=== PATIENT | female | born 1960 | race Hispanic/Latino ===

== ENCOUNTER → 2017-08-14 | Outpatient (CLI) | payer MEDICARE, MEDICAID ==
[2017-08-14 12:28] LABS: #Eosinphils 0.1 thou/uL (0.0-0.7); #Lymphocytes 2.3 thou/uL (1.20-3.40); #Monocytes 0.5 thou/uL (0.11-0.59); #Neutrophils 2.6 thou/uL (1.40-6.50); %Basophils 0.8 % (0.0-1.0); %Eosinophils 2.6 % (0.0-10.0); %Lymphocytes 41.2 % (21.0-51.0); %Monocytes 8.9 % (0.0-10.0); %Neutrophils 46.5 % (42.0-75.0); Hemoglobin 13.8 g/dL (12.0-16.0); Mean Corpuscular HGB CONC 33.7 g/dL (32.0-36.0); Mean Corpuscular Hemoglobin 32.1 pg (27.0-31.0); Mean Corpuscular Volume 95.3 fl (81.0-99.0); Mean Platelet Volume 9.3 fL (7.4-10.4); Platelet Count 158 thou/uL (130-400); RBC Distribution Width 11.8 % (11.5-14.5); Red Blood Cell (RBC) Count 4.28 mill/uL (4.20-5.40); White Blood Cell (WBC) Count 5.6 thou/uL (4.8-10.8)
[2017-08-14 12:46] LABS: Bilirubin Negative (Negative); Blood, Urine Negative (Negative); Clarity CLEAR (Clear); Glucose, Urine (Dipstick) 250 mg/dL (Negative); Leukocyte Negative (Negative); Nitrite Negative (Negative); Protein, Urine (Dipstick) Negative (Neg-Trace); Specific Gravity, Urine 1.017 (1.002-1.036)
[2017-08-14 12:49] LABS: Bacteria/HPF None Seen HPF (None Seen); Hyaline Casts/LPF 0-3 HYALINE CAST LPF (0-3 Hyaline); RBC/HPF 0-3 HPF (0-3); Squamous Epithelial 0-3 HPF (0-3); WBC/HPF None Seen HPF (0-3)
[2017-08-14 12:58] LABS: Anion Gap 13 mmol/L (10-20); BUN (Urea Nitrogen) 8 mg/dL (9.8-20.1); Calc. Creatinine Clearance 0 mL/min (70-130); Calcium 9.2 mg/dL (7.8-10.44); Carbon Dioxide 26 mmol/L (22-29); Chloride 106 mmol/L (98-107); Estimated GFR-MDRD 78; Glucose 202 mg/dL (70-105); Sodium 141 mmol/L (136-145)
== END ==
LOC: LABBT 09:00
PROVIDERS: ATTEND Orthopaedic Surgery Hand Surgery
DX: Z01.812 Encounter for preprocedural laboratory examination (principal); M65.332 Trigger finger, left middle finger
CPT/HCPCS: 80048; 81001; 85025

== ENCOUNTER 2017-08-16 06:09 | Day surgery (SDC) | payer MEDICARE, MEDICAID ==
[2017-08-14 11:40] VITALS: BMI 25.7
[2017-08-16] MEDS ORDERED: Bupivacaine PF 0.5% 30 ML VIAL ONE (06:45)
[2017-08-16] MEDS ORDERED: Betamet Acet/Betamet Na Ph 30 MG/5 ML VIAL ONE (06:45)
[2017-08-16] MEDS ORDERED: CEFAZOLIN/Water 2 GM/20 ML SYRINGE ONE (06:59)
[2017-08-16] MEDS ORDERED: Fentanyl 100 MCG/2 ML VIAL ONE (07:02)
[2017-08-16] MEDS ORDERED: Midazolam HCl 2 mg/2 ml Vial ONE (07:02)
[2017-08-16] MEDS ORDERED: Bacitracin Zinc Ointment 30 gm TUBE ONE (08:06)
[2017-08-16] MEDS ORDERED: Ketorolac Tromethamine 30 MG/ML VIAL ONE (09:01)
--- NOTE | 2017-08-16 10:09 | OP ---
DATE OF PROCEDURE: 08/16/2017 PREOPERATIVE DIAGNOSIS: Left middle finger or long finger trigger digit. FINDINGS: 1. Very tight A1 darrian. 2. Thick flexor profundus and flexor superficialis at this level with very large tenosynovium. PROCEDURE PERFORMED: 1. Flexor digitorum profundus and superficialis radical flexor synovectomy. 2. A1 darrian release, left long finger. Injection with 10 mL total 0.5% Marcaine and 4 Celestone injection 3 mL over the tendons. SPECIMEN: None. TOURNIQUET TIME: 9 minutes. SURGEON: Christiano Haines M.D. INDICATIONS: Failed conservative treatment with pain throughout most of the finger, but centered on the A1 darrian region. She has failed conservative treatment and was associated with treatment. DESCRIPTION: After receiving successful anesthesia by [facility] with general LMA technique automated by the block list above, it was prepped and draped, timeout was accomplished. We outlined a curvilinear incision along the flexor crease of the involved finger, carried through skin and subc utaneous tissue. We identified the neurovascular bundle, protected it and then found a very tight A1 darrian with synovial swelling almost 1.5 cm proximal to it and underneath it. We released A1 darrian in the midline under direct visualization with a Sheridan blade, then performed tenosynovectomy, remov ed all the additional swelling from there proximal. We lifted the tendon up and did not see any mass es on the volar plate. Released tourniquet. Hemostasis obtained. with 3 mL of good technique Celestone, betamethasone inside and the patient then had the incision closed with interrupted 4-0 ny danica. The patient left the operating room without evidence of anesthetic or operative complication in a bulky dressing.
== END 2017-08-16 11:18 | disposition home or self-care (01) ==
LOC: SDC 06:09
PROVIDERS: ATTEND Orthopaedic Surgery Hand Surgery
PROC: 0LN80ZZ Release Left Hand Tendon, Open Approach (ICD-10-PCS; principal; 2017-08-16)
DX: M65.332 Trigger finger, left middle finger (principal); E11.9 Type 2 diabetes mellitus without complications; M19.90 Unspecified osteoarthritis, unspecified site; M65.9 Synovitis and tenosynovitis, unspecified; F17.200 Nicotine dependence, unspecified, uncomplicated; Z79.84 Long term (current) use of oral hypoglycemic drugs; Z79.891 Long term (current) use of opiate analgesic; Z79.899 Other long term (current) drug therapy; Z90.710 Acquired absence of both cervix and uterus; Z90.49 Acquired absence of other specified parts of digestive tract; Z98.890 Other specified postprocedural states
CPT/HCPCS: 36416; 96372; J0702; J1885; J2250; J3010; S0020

== ENCOUNTER 2017-09-04 19:05 | Observation (INO) | payer MEDICARE, MEDICAID ==
[~2017-09-04 19:05] MED LIST: Ketorolac Tromethamine 30 MG/ML VIAL ONE; Ondansetron HCl/PF 4 MG/2 ML Vial ONE; PROPOFOL 200 MG/20 ML VIAL ONE; diphenhydrAMINE 50 MG/ML VIAL ONE; ePHEDrine/0.9% NaCl/PF SYRINGE 50 mg/10 ml ONE
[2017-09-04] MEDS ORDERED: Bacitracin Zinc Ointment 30 gm TUBE ONE (20:14)
[2017-09-04] MEDS ORDERED: Sodium Chloride 0.9% 10 ML ONE ×2 (20:14→21:40)
[2017-09-04] MEDS ORDERED: Fentanyl 100 MCG/2 ML VIAL ONE ×3 (21:00→22:35)
[2017-09-04] MEDS ORDERED: Bisacodyl 10 MG SUPP PR PRN (22:13)
[2017-09-04] MEDS ORDERED: Promethazine HCl 25 MG/ML VIAL IM PRN ×2 (22:13)
[2017-09-04] MEDS ORDERED: Ondansetron HCl/PF 4 MG/2 ML Vial IV PRN (22:13)
[2017-09-04] MEDS ORDERED: Promethazine HCl 25 MG/ML VIAL SLOW IVP PRN (22:13)
[2017-09-04] MEDS ORDERED: Ondansetron HCl/PF 4 MG/2 ML Vial IVP PRN (22:13)
[2017-09-04] MEDS ORDERED: Milk Of Magnesia 30 ML UDCUP PO PRN (22:13)
[2017-09-04] MEDS ORDERED: Communication Order-Pharmacy FS SCH (22:15)
[2017-09-04] MEDS ORDERED: TETANUS AND DIPHTHERIA TOX/PF 0.5 ML DISP.SYRIN IM SCH (23:00)
[2017-09-04] MEDS: HYDROcodone/Acetaminophen 5/325 mg Tablet PO PRN (23:25)
[2017-09-04] MEDS ORDERED: Ketorolac Tromethamine 30 MG/ML VIAL IVP SCH (23:59)
[2017-09-05] MEDS: traMADol HCl 50 MG TAB PO PRN ×3 (02:12→18:53)
[2017-09-05 02:19] VITALS: BMI 27.6
[2017-09-05] MEDS: Ketorolac Tromethamine 30 MG/ML VIAL IVP SCH ×4 (04:54→21:14)
[2017-09-05] MEDS ORDERED: Adacel (T-DAP) 0.5 ML VIAL IM ONE (06:00)
--- NOTE | 2017-09-05 06:33 | OP ---
DATE OF PROCEDURE: 09/04/2017 POSTOPERATIVE DIAGNOSES: 1. Left middle finger open wound with abscess, palmar A1 darrian, surgery site. 2. Tendon sheath infection, left middle finger. FINDINGS: 1. Tendon sheath purulence A3-4 level. 2. Mucopurulence, A1 darrian level with marked tenosynovitis, flexor digitorum profundus superficiali s. PROCEDURES PERFORMED: 1. Radical flexor tenosynovectomy, digitorum profundus. 2. Radical flexor tenosynovectomy, flexor digitorum superficialis, this is at the palm of the left m iddle finger. 3. Tendon sheath drainage, finger level, left-middle finger. SPECIMEN: Yes. Culture at both sites as listed above. TOURNIQUET TIME: 14 minutes. ESTIMATED BLOOD LOSS: 10 mL. INDICATION: The patient had a 3-week ago, A1 darrian radical release with flexor tenosynovectomy now complained of erythema, pain, and failed conservative outpatient treatment for an infection. Now has an abscess based on visualization today in clinic and therefore did not want to have the site go und ebrided too long and so scheduled tonight based on n.p.o. status. DESCRIPTION OF PROCEDURE: After successful LMA technique, the patient's limb prepped and draped. Th en, we inflated tourniquet to 250 mmHg pressure. After exsanguinating the limb, we were able to exte nd incision 6-mm distal, 5-mm proximal, exposed the tendon sheath to protect the digital nerves, and then seated with marked tenosynovitis, which lifted up, debrided along the wound edges and sent this for culture. Then distally, we made an incision just distal to the A4 darrian, and then just proximal to the A4 darrian, just distal to the A3 darrian, and then opened the sheath. There was mucopurulence that escaped. We then placed a pediatric feeding tube catheter from here and irrigated 10 mL distal to the DIP joint and then another 25 proximal to the MP joint. We then moved the tendon sheath, and then prepared to place a wet-to-dry dressing, which we did. The patient then had a bulky dressing wet-to-dry, we took a drainage of the 2 sites on the question a nd no evidence of anesthetic or operative complication to recovery room.
[2017-09-05] MEDS: HYDROcodone/Acetaminophen 5/325 mg Tablet PO PRN ×2 (06:37→14:55)
[2017-09-05] MEDS: Enoxaparin Sodium 40 MG/0.4 ML SYRINGE SC SCH (08:08)
[2017-09-05] MEDS ORDERED: Vancomycin HCl 1 GM in Premix Bag 1 BAG IVPB SCH ×2 (10:30→22:00)
[2017-09-06] MEDS: HYDROcodone/Acetaminophen 5/325 mg Tablet PO PRN ×4 (00:28→17:35)
[2017-09-06] MEDS: traMADol HCl 50 MG TAB PO PRN (03:08)
[2017-09-06] MEDS: Enoxaparin Sodium 40 MG/0.4 ML SYRINGE SC SCH (08:42)
[2017-09-06] MEDS ORDERED: Loratadine 10 MG TAB PO PRN (11:32)
[2017-09-06] MEDS ORDERED: Vancomycin HCl 1 GM in Premix Bag 1 BAG IVPB SCH (12:30)
[2017-09-06 12:43] VITALS: TEMP 98.5
[2017-09-06] MEDS ORDERED: Gabapentin 300 MG CAP PO SCH (15:00)
[2017-09-06 16:27] VITALS: BP 130/79
[2017-09-06] MEDS ORDERED: metFORMIN 500 MG TAB PO SCH (17:00)
[2017-09-09 09:09] LABS: Fungus Stain Final report (.)
[2017-09-09 09:09] LABS: Fungus Stain Final report (.)
--- NOTE | 2017-09-10 10:04 | DIS ---
DATE OF ADMISSION: 09/04/2017 DATE OF DISCHARGE: 09/06/2017 PREOPERATIVE DIAGNOSES: Left middle finger tenosynovitis, flexor digitorum profundus, and superficia lis possible infectious with tendon sheath abscess. FINDINGS: Small tendon sheath abscess with tenosynovitis flexor digitorum superficialis and flexor d igitorum profundus of the same left middle finger. HOSPITAL COURSE: Patient was admitted, underwent surgical procedure because of free of infection at the previous A1-darrian site and spread down into the finger. We found a tendon sheath abscess, which was drained both from the primary incision and then making a secondary incision just distal to the A 2 darrian. We also made one just distal to the A4 darrian. Tendon with gross sheath irrigation, she may in the hospital for IV antibiotics for 36 hours and pain control. With the wound looked good, she had no evidence of , and she was prepared for dischar ge. DISCHARGE DIAGNOSES: 1. Infectious tenosynovitis flexor digitorum profundus, left middle finger. 2. Flexor tenosynovitis, flexor digitorum profundus, left superficialis, left middle finger. 3. Tendon sheath abscess both sides. DISCHARGE PLAN: Patient has regular diet. She will be given Toradol and [place] for pain. She is als o going to be treated on rifampin and ethambutol.
[2017-10-04 14:21] LABS: Fungus Culture Final report (.)
[2017-10-04 14:21] LABS: Fungus Culture Final report (.)
== END 2017-09-06 19:00 | disposition home or self-care (01) ==
LOC: SDC 19:05 → SURG A 22:13
PROVIDERS: ADMIT Orthopaedic Surgery Hand Surgery; ATTEND Orthopaedic Surgery Hand Surgery
PROC: 0LT80ZZ Resection of Left Hand Tendon, Open Approach (ICD-10-PCS; principal; 2017-09-04)
PROC: 0L980ZZ Drainage of Left Hand Tendon, Open Approach (ICD-10-PCS; 2017-09-04)
DX: S61.203A Unspecified open wound of left middle finger without damage to nail, initial encounter (principal); L02.512 Cutaneous abscess of left hand; M65.9 Synovitis and tenosynovitis, unspecified; E11.9 Type 2 diabetes mellitus without complications; M19.90 Unspecified osteoarthritis, unspecified site; F17.200 Nicotine dependence, unspecified, uncomplicated; Z79.2 Long term (current) use of antibiotics; Z79.84 Long term (current) use of oral hypoglycemic drugs; Z79.899 Other long term (current) drug therapy; Z90.710 Acquired absence of both cervix and uterus; Z90.49 Acquired absence of other specified parts of digestive tract; Z98.890 Other specified postprocedural states
CPT/HCPCS: 26145 ×2; 26020; 82962 ×3; 87070; 87075; 87077; 87102; 87186; 87205; 87206; 90715; 96365; 96372 ×2; 96375 ×2; 96376; G0378; 36416; 96374; A4216; J1200; J1650; J1885; J2405; J2704; J3010; J3370; J3490